=== PATIENT | male | born 1965 | race Caucasian/White ===

== ENCOUNTER 2024-08-02 08:03 | Emergency (ER) | payer BC, SELFPAY ==
[2024-08-02 08:08] VITALS: BP 142/83; PULSE 67; RESP 18; TEMP 37; O2SAT 99; BMI 29.7
--- NOTE | 2024-08-02 08:27 | ED_ITS ---
HPI - General Adult General Chief complaint: Abdominal Pain Stated complaint: lower abdominal pain getting worse Time Seen by Provider: 08/02/24 08:06 History of Present Illness HPI narrative: Pt has been experiencing lower left sided abdominal pain since Tuesday (07/29). States he wasn 't feeling well on Tuesday and then began having abdominal pain and persistent diarrhea. Patient continues to have very watery stools and sharp pain that is very localized to his left lower quadrant. Pt took Gas-X with no relief. He has taken ibuprofen and says that helps with the pain. Pt denied fever, chills, vomiting, and blood in the stools. 58-year-old man presenting to the emergency department with concern of abdominal pain. Beginning about 4 days ago began having diarrhea and abdominal pain. Rather watery stools. No hematochezia noted. No melena. This morning though pain intensified in the left lower abdomen. Anti-gas medication did not help. Also tried ibuprofen which has helped a little bit. No fever. No particular exposures. No travel. Pain got much worse this cause analyst and just felt that he should be evaluated at this point. Related Data Allergies Allergy/AdvReac Type Severity Reaction Status Date / Time No Known Drug Allergies Allergy Verified 08/02/24 08:14 Review of Systems Status of ROS: Reports: 6 or more systems reviewed and unremarkable except as noted in History and below [facility] Social History Smoking Status: Never smoker How often do you have a drink containing alcohol: monthly or less AUDIT-C Alcohol total score: 1 Non-prescribed substance use: denies use Exam Narrative: Exam Narrative: Pleasant. Easily conversant. Breathing easily. Heart in regular rate and rhythm. Abdomen present bowel sounds is soft. No peritoneal signs. Moderately tender to palpation in the left mid to lower abdomen. No masses. No flank pain. Is well-perfused. Const: Vital Signs, click to edit/add: Vital Signs - 24 hr 08/02/24 08:08 Temperature 98.6 F Pulse Rate [Left P ulse Oximeter] 67 Respiratory Rate 18 Blood Pressure [Ri ght Upper Arm] 142/83 H Pulse Oximetry 99 Oxygen Delivery Me thod Room Air Documenting provider has reviewed patient's vital signs: yes Course Vital Signs Vital signs: Initial Vital Signs Temperature 98.6 F 08/02/24 08:08 Temperature Source Oral 08/02/24 08:08 Pulse Rate 67 08/02/24 08:08 Respiratory Rate 18 08/02/24 08:08 Blood Pressure 142/83 H 08/02/24 08:08 Blood Pressure Mean 102 08/02/24 08:08 Blood Pressure Position Supine 08/02/24 08:08 Pulse Oximetry 99 08/02/24 08:08 Oxygen Delivery Method Room Air 08/02/24 08:08 Vital Signs Temperature 98.6 F 08/02/24 08:08 Pulse Rate 67 08/02/24 08:08 Respiratory Rate 18 08/02/24 08:08 Blood Pressure 142/83 H 08/02/24 08:08 Pulse Oximetry 99 08/02/24 08:08 Oxygen Delivery Method Room Air 08/02/24 08:08 Temperature 97.8 F 08/02/24 09:50 Pulse Rate 66 08/02/24 09:50 Respiratory Rate 18 08/02/24 09:50 Blood Pressure 121/76 08/02/24 09:50 Pulse Oximetry 96 08/02/24 09:50 Oxygen Delivery Method Room Air 08/02/24 09:50 Medical Decision Making MDM Narrative Medical decision making narrative: Clearly with a diarrheal illness. This might be a colitis. No concerning signs otherwise though of hematochezia. Abdominal exam is not unexpectedly tender. Differential certainly includes diverticulitis as well. Pain might be gas pains as well. There seems to be some colicky nature as well. Does not appear to have any urinary tract symptoms. Typically would not be treating a colitis beyond symptom management. Did propose lab testing for red flags and then potential imaging. I do not think that pain is inconsistent yet with diarrheal illness and potentially related gas or colic. Mr. Sheridan did not feel that he needed anything for pain or nausea at this point. Labs generally reassuring. Normal white count. CRP came back elevated though. No evidence of renal compromise. We did discuss potential imaging but agreed to monitor closely and treat symptoms. He might drop off a stool sample if this continues. See patient discharge plan for further discussion Lab Data Lab results reviewed: Yes I reviewed the patient's lab results Labs: Lab Results 08/02/24 Range/Units 08:57 WBC 8.95 (4.50-11.00) K/uL RBC 4.19 L (4.30-5.90) m/uL Hgb 13.2 L (13.5-17.5) gm/dL Hct 39.5 (37.0-53.0) % MCV 94 (80-100) fL MCH 32 (26-34) pg MCHC 33 (32-36) gm/dL RDW Coeff of [place] 11.7 (11.5-15.5) % Plt Count 168 (140-440) K/uL Neut % (Auto) 74.8 H (42.0-72.0) % Lymph % (Auto) 11.7 L (20-44) % [place] % (Auto) 10.7 (0.0-11.0) % Eos % (Auto) 2.5 (0.0-7.0) % Baso % (Auto) 0.2 (0.0-3.0) % Neut # (Auto) 6.70 (1.7-7.0) K/uL Lymph # (Auto) 1.00 (0.90-2.90) K/uL [place] # (Auto) 1.00 H (0.00-0.90) K/UL Eos # (Auto) 0.22 (0.00-0.50) K/uL Baso # (Auto) 0.02 (0.00-0.30) K/uL Abs Immat Gran (auto) 0.01 (0.00-0.30) K/uL Imm/Tot Granulo (auto) 0.1 % Sodium 134 L (135-149) mmol/L Potassium 3.9 (3.6-5.1) mmol/L Chloride 98 (96-114) mmol/L Carbon Dioxide 28 (20-32) mmol/L Anion Gap 8 (7-15) mEq/L BUN 13 (7-30) mg/dL Creatinine 0.9 (0.5-1.5) mg/dL Estimated Creat Clear 102.34 Estimated GFR 100 ml/min Glucose 97 (60-115) mg/dL Calcium 9.1 (8.4-10.6) mg/dL C-Reactive Protein 14.3 H (0.5-1.0) mg/dL Discharge Plan Discharge Clinical Impression: Diarrhea, Abdominal pain Additional Instructions: Continue to focus on hydration. As long as you are not having a fever or seeing blood in your stool, consider loperamide for diarrhea. This is available [id number]. Can also continue on ibuprofen or acetaminophen. Would consider bringing back stool sample for analysis. We can follow this up making further recommendations based on continued symptoms. Otherwise would normally be seen if diarrhea continuing for a week. Be seen also for marked increase in persistent pain, fever, increasing blood in stool. Follow Up/Referrals: Provider,Not a Local [Primary Care Provider] - Stand Alone Forms: [email or web address] Info Instructions
[2024-08-02 09:21] LABS: Basophils Absolute Auto 0.02 K/uL (0.00-0.30); Basophils Percent Auto 0.2 % (0.0-3.0); Eosinophils Absolute Auto 0.22 K/uL (0.00-0.50); Eosinophils Percent Auto 2.5 % (0.0-7.0); Hematocrit 39.5 % (37.0-53.0); Hemoglobin* 13.2 gm/dL (13.5-17.5); Immature Granulocytes Abs Auto 0.01 K/uL (0.00-0.30); Immature Granulocytes Pct Auto 0.1 %; Lymphocytes Percent Auto 11.7 % (20-44); Mean Corpuscular HGB Conc 33 gm/dL (32-36); Mean Corpuscular Hemoglobin 32 pg (26-34); Mean Corpuscular Volume 94 fL (80-100); Monocytes Percent Auto 10.7 % (0.0-11.0); Neutrophils Percent Auto 74.8 % (42.0-72.0); Platelet Count* 168 K/uL (140-440); RDW Coefficient of Variation % 11.7 % (11.5-15.5); Red Blood Count 4.19 m/uL (4.30-5.90); White Blood Count* 8.95 K/uL (4.50-11.00)
[2024-08-02 09:25] LABS: Slide Review Reflex No
[2024-08-02 09:48] LABS: Chloride* 98 mmol/L (96-114); Sodium* 134 mmol/L (135-149)
[2024-08-02 09:49] LABS: Potassium* 3.9 mmol/L (3.6-5.1)
[2024-08-02 09:50] VITALS: BP 121/76; PULSE 66; RESP 18; TEMP 36.6; O2SAT 96
[2024-08-02 09:51] LABS: Creatinine* 0.9 mg/dL (0.5-1.5); Est. Creatinine Clearance* 102.34; Estimated Glomerular Filt Rate 100 ml/min
[2024-08-02 09:52] LABS: Anion Gap 8 mEq/L (7-15); Blood Urea Nitrogen* 13 mg/dL (7-30); Calcium* 9.1 mg/dL (8.4-10.6); Carbon Dioxide* 28 mmol/L (20-32); Glucose* 97 mg/dL (60-115)
[2024-08-02 10:05] LABS: C Reactive Protein* 14.3 mg/dL (0.5-1.0)
== END 2024-08-02 10:23 | disposition home or self-care (01) ==
PROVIDERS: Emergency Provider Family Medicine
DX: R10.9 Unspecified abdominal pain (principal); R19.7 Diarrhea, unspecified
CPT/HCPCS: 36415; 80048; 85025; 86140; 87045; 87046; 87427; 99283; 99284